=== PATIENT | female | born 1985 | race Caucasian/White ===

== ENCOUNTER 2017-03-04 19:38 | Emergency (ER) | payer MEDICAID ==
[2017-03-04 19:53] VITALS: RESP 18
[2017-03-04] MEDS ORDERED: OXYCODONE/APAP 5/325 TAB PO ONE (20:34)
--- NOTE | 2017-03-04 20:37 | EDPHY ---
General Narrative: CHIEF COMPLAINT: Left foot and ankle pain, left thigh pain, sent for DVT rule out HISTORY OF PRESENT ILLNESS: Patient complains of severe pain in the left foot, ankle, thigh and leg. Symptoms started earlier today. Mild at 1st and now much more severe. Worse with weight-bearing, palpation or movement. Radiates up the entire leg. No paresthesia or anesthesia. No redness or warmth. She does have some swelling in the leg. She is not certain if there was an injury or not. She is on her feet frequently for long periods of time for work. She also has a recent flight to [place] within the past 10 days. She reports history of fibromyalgia so she is uncertain if any of this is related. She went to urgent care and they were concerned for DVT so they sent her to our facility for rule out. No modalities were performed there. No other associated complaints or modifying factors. REVIEW OF SYSTEMS: Ten systems reviewed and are negative unless otherwise noted in the HPI EXAMINATION General Appearance: Alert, no distress Cardiovascular: Pulses normal throughout. Symmetric radial pulses are 2+. Brisk cap refill Neurological: A&O, sensory symmetric, strength symmetric. No foot drop. Strength is 5/5 in both legs. Skin: Warm and dry, no rash. No erythema. No petechiae or purpura. Extremities: Nontender, mild left lower extremity pedal edema. Point tenderness over the midfoot on the left and over bilateral malleoli on the left. Range of motion is intact in the left left foot, ankle and knee. No pain with passive dorsiflexion of the left foot. No palpable cords. No evidence of DVT by examination. Psychiatric: Mood and affect normal DIFFERENTIAL DIAGNOSES: Including but not limited to fibromyalgia, sprain, strain, fracture, DVT MDM: 8:30 p.m. Pain left foot and ankle with some pain in the associated leg and thigh. Patient did recently fly to [place] within the past week. There is some mild swelling to the leg but I do not appreciate any erythema. Suspicion is low for DVT, the patient was sent here from urgent care to rule this out. The patient expressed her concern for this and does want an ultrasound of the leg. 9:08 p.m. I have reviewed the x-rays of the foot and ankle. By my interpretation without the aid of the radiologist there are no acute fractures or dislocations. 9:20 p.m. Notified by radiologist Dr. Davidson. Ultrasound of the left lower extremity shows no acute DVT. X-rays are pending at this time. 10:05 p.m. X-rays are unremarkable for any acute findings. She is feeling better after the Percocet given here. Uncertain etiology for her pain but she is neurovascular intact no outward signs of trauma. Her DVT study is negative. Discussed anti-inflammatories in her pre-existing pain medication. We also discussed a trial of prednisone as she does have autoimmune disorder. She is comfortable with this plan to be discharged home in stable condition with instructions to start a medication tomorrow. ED Precautions: Worsening pain. Erythema, edema, cyanosis, pallor, paresthesia or anesthesia. SUPERVISION: This patient was independently evaluated without direct examination by the attending physician. Case was discussed with attending physician. - Diagnostics Imaging Results: Imaging Impressions Ankle X-Ray 03/04/17 20:32 Impression: Nothing acute radiographically. Extremity Venous Study 03/04/17 20:32 Impression: No evidence of deep vein thrombosis in the left leg. Findings and recommendations discussed with Jimbo Weller at 2121 hour, 03/04. Final report concurs with initial preliminary interpretation. Foot X-Ray 03/04/17 20:32 Impression: Nothing acute radiographically. - History Smoking Status: Never smoked - Objective Vital Signs: Initial Vital Signs Temperature (C) 98.1 F 03/04/17 19:45 Heart Rate 95 03/04/17 19:45 Respiratory Rate 18 03/04/17 19:45 Blood Pressure 133/85 H 03/04/17 19:45 O2 Sat (%) 96 03/04/17 19:45 O2 Delivery Mode Room Air Allergies/Adverse Reactions: ketorolac [From Toradol] Allergy (Verified 03/04/17 19:54) morphine Allergy (Verified 03/04/17 19:54) Home Medications: Medication Instructions Recorded Ibuprofen 800 mg PO 03/04/17 Omeprazole 20 mg PO 03/04/17 Oxycodone HCl 20 mg PO 03/04/17 predniSONE [Deltasone] 60 mg PO DAILY #15 tablet 03/04/17 Medications Given: Discontinued Medications Oxycodone/Acetaminophen (Percocet 5/325) 2 tab PO EDNOW ONE Stop: 03/04/17 20:35 Last Admin: 03/04/17 21:16 Dose: 2 tab Departure - Departure Disposition: Home, Routine, Self-Care Clinical Impression: Lower extremity pain, left Condition: Good Instructions: Arthralgia (ED) Additional Instructions: Continue your existing pain medication. Add [id number] anti- inflammatories as tolerated. Trial of prednisone starting tomorrow. Follow up with primary care physician. Referrals: Patient,NotPresent [Unknown] - As per Instructions Leti Buitrago MD [Medical Doctor] - As per Instructions Prescriptions: predniSONE [Deltasone] 60 mg PO DAILY #15 tablet
[2017-03-04 22:14] VITALS: BP 118/70; PULSE 70; TEMP 98.4; O2SAT 98
== END 2017-03-04 22:23 | disposition home or self-care (01) ==
DX: M79.662 Pain in left lower leg (principal)
CPT/HCPCS: L3260